=== PATIENT | female | born 1930 | race Caucasian/White ===

== ENCOUNTER 2017-07-08 08:55 | Outpatient (CLI) | payer MEDICARE, BC ==
--- NOTE | 2017-07-08 09:44 | CT ---
CT BRAIN NONCONTRAST: HISTORY: Follow up abnormal brain CT in 87-year-old female. The order states cerebrovascular accident I63.9 Comparison: 06-05-17 FINDINGS: There is no midline shift or any other mass effect. There is no evidence of acute intracranial hemo rrhage, large cortical infarct, obstructive hydrocephalus, or extraaxial fluid collection. The calv arium is intact. The tiny, approximately 0.5 cm intraaxial hyperdensity slightly to the right of mid line at the posterior edge of the velia and right tectum, abutting the ventral aspect of the fourth v entricle, is no longer definitely identified. In its place, there is a punctate 1-2 mm hyperdensity in the same location which could represent artifact or a tiny residual calcification. IMPRESSION: 1. No acute intracranial findings. 2. The previously demonstrated tiny hyperdense lesion at the posterior aspect of the upper brai nstem has either resolved or become much smaller. Recommend MRI of the brain with and without contra st for further evaluation, including gradient echo sequence. franky Duran POS: OFF
== END 2017-07-08 08:56 | disposition home or self-care (01) ==
LOC: TBSIIMAG 08:55
PROVIDERS: ATTEND Neurological Surgery
DX: I63.9 Cerebral infarction, unspecified (principal)
CPT/HCPCS: 70450

== ENCOUNTER 2017-09-08 08:00 | Outpatient (CLI) | payer MEDICARE, BC | END 2017-09-08 08:01 | disposition home or self-care (01) | LOC: BICMAMMO 08:00 | PROVIDERS: ATTEND Family Medicine | DX: Z12.31 Encounter for screening mammogram for malignant neoplasm of breast (principal); Z13.820 Encounter for screening for osteoporosis; M85.88 Other specified disorders of bone density and structure, other site; Z80.3 Family history of malignant neoplasm of breast; Z78.0 Asymptomatic menopausal state | CPT/HCPCS: 77063; 77080 ==

== ENCOUNTER 2017-10-05 02:23 | Outpatient (CLI) | payer MEDICARE, BC | END 2017-10-05 02:24 | disposition home or self-care (01) | LOC: BICRAD 02:23 | PROVIDERS: ATTEND Family Medicine | DX: R05 Cough (principal); I77.810 Thoracic aortic ectasia; I70.0 Atherosclerosis of aorta; Z98.890 Other specified postprocedural states | CPT/HCPCS: 71046 ==

== ENCOUNTER 2018-09-09 08:46 | Outpatient (CLI) | payer MEDICARE, BC | END 2018-09-09 08:47 | disposition home or self-care (01) | LOC: BICMAMMO 08:46 | PROVIDERS: ATTEND Obstetrics & Gynecology | DX: Z12.31 Encounter for screening mammogram for malignant neoplasm of breast (principal); Z80.3 Family history of malignant neoplasm of breast; Z85.89 Personal history of malignant neoplasm of other organs and systems | CPT/HCPCS: 77063; 77067 ==

== ENCOUNTER 2019-07-19 08:32 | Outpatient (CLI) | payer MEDICARE, BC ==
--- NOTE | 2019-07-19 10:36 | MMO ---
Bilateral MAMMO Bilat Diag [facility]RA[facility]. CLINICAL HISTORY: Patient is 89 years old and is seen for diagnostic exam. The patient has a history of right Excisional Biopsy in 1956 - BENIGN and right Excisional Biopsy in 1980 - BENIGN. VIEWS: The views performed were: bilateral craniocaudal with tomosynthesis; bilateral mediolateral oblique with tomosynthesis; bilateral mediolateral with tomosynthesis; and right exaggerated craniocaudal with tomosynthesis. FILMS COMPARED: The present examination has been compared to prior imaging studies performed at [facility] on 09/12/2015, 09/08/2017, 09/09/2018 and 07/19/2019. This study has been interpreted with the assistance of computer-aided detection. MAMMOGRAM FINDINGS: There are scattered fibroglandular densities. Finding 1: There are stable benign appearing calcifications seen in both breasts. Finding 2: There are no mammographic or sonographic abnormalities in the area of palpable concern on the right. The patient is referred back to her clinician. Negative imaging findings should not preclude biopsy if clinical findings are suspicious. IMPRESSION: FINDING 2: THERE ARE NO MAMMOGRAPHIC ABNORMALITIES IN THE AREA OF PALPABLE CONCERN ON THE RIGHT. THE PATIENT IS REFERRED BACK TO HER CLINICIAN. NEGATIVE IMAGING FINDINGS SHOULD NOT PRECLUDE BIOPSY IF CLINICAL FINDINGS ARE SUSPICIOUS. A ROUTINE FOLLOW-UP MAMMOGRAM IN 1 YEAR IS RECOMMENDED. THE RESULTS OF THIS EXAM WERE SENT TO THE PATIENT. ACR BI-RADS Category 2 - Benign finding MAMMOGRAPHY NOTE: 1. A negative mammogram report should not delay a biopsy if a dominant of clinically suspicious mass is present. 2. Approximately 10% to 15% of breast cancers are not detected by mammography. 3. Adenosis and dense breasts may obscure an underlying neoplasm. Reported by: CHRIS RUTHERFORD MD Electonically Signed: [id number]
--- NOTE | 2019-07-19 10:46 | BD ---
BONE DENSITOMETRY USING DEXA: HISTORY: Screening for postmenopausal osteoporosis. FINDINGS LUMBAR SPINE BMD (g/cm2) T-SCORE L1 0.756 -2.1 L2 0.860 -1.5 L3 0.744 -3.1 L4 0.844 -2.0 TOTAL 0.810 -2.2 BMD (g/cm2) T-SCORE NECK 0.631 -2.0 TOTAL 0.763 -1.5 IMPRESSION: Osteopenia. POS: JOSH
--- NOTE | 2019-07-19 11:49 | ULT ---
LIMITED RIGHT BREAST ULTRASOUND: 07/19/2019 PROVIDED CLINICAL HISTORY: Right breast palpable abnormality. FINDINGS: Limited sonographic interrogation of the right breast was performed in the region of palpable concern . An area of vague shadowing is demonstrated, corresponding with the patient's scar in this region. No corresponding mammographic abnormality is evident. No additional sonographic abnormality is evident. IMPRESSION: No concerning findings are apparent sonographically or mammographically in the region of palpable con cern. Negative imaging findings should not preclude further evaluation of a clinically suspicious area. The patient is referred back to her clinician. BIRADS 2 - Benign findings. POS: OFF
== END 2019-07-19 08:33 | disposition home or self-care (01) ==
LOC: BICMAMMO 08:32
PROVIDERS: ATTEND Obstetrics & Gynecology
DX: N63.21 Unspecified lump in the left breast, upper outer quadrant (principal); M81.0 Age-related osteoporosis without current pathological fracture; M85.89 Other specified disorders of bone density and structure, multiple sites; Z79.890 Hormone replacement therapy
CPT/HCPCS: 76642; 77066; 77080; G0279

== ENCOUNTER 2019-09-22 18:03 | Observation (INO) | payer MEDICARE, BC ==
[2019-09-22 20:03] LABS: #Eosinphils 0.2 thou/uL (0.0-0.7); #Lymphocytes 2.1 thou/uL (1.20-3.40); #Neutrophils 9.3 thou/uL (1.40-6.50); %Basophils 0.2 % (0.0-1.0); %Lymphocytes 16.4 % (21.0-51.0); %Monocytes 7.8 % (0.0-10.0); %Neutrophils 73.6 % (42.0-75.0); Hemoglobin 13.4 g/dL (12.0-16.0); Mean Corpuscular HGB CONC 33.7 g/dL (32.0-36.0); Mean Corpuscular Hemoglobin 31.2 pg (27.0-31.0); Mean Corpuscular Volume 92.7 fL (78.0-98.0); Mean Platelet Volume 8.7 fL (7.4-10.4); Platelet Count 201 thou/uL (130-400); RBC Distribution Width 11.8 % (11.5-14.5); Red Blood Cell (RBC) Count 4.29 mill/uL (4.20-5.40); White Blood Cell (WBC) Count 12.6 thou/uL (4.8-10.8)
[2019-09-22 20:14] LABS: ALT (SGPT) 15 U/L (8-55); AST (SGOT) 28 U/L (5-34); Albumin 3.9 g/dL (3.4-4.8); Alkaline Phosphatase 97 U/L (40-110); Anion Gap 11 mmol/L (10-20); BUN (Urea Nitrogen) 24 mg/dL (9.8-20.1); Calc. Creatinine Clearance 0 mL/min (70-130); Calcium 9.1 mg/dL (7.8-10.44); Carbon Dioxide 27 mmol/L (23-31); Chloride 100 mmol/L (98-107); Estimated GFR-MDRD 73; Globulin 2.6 g/dL (2.4-3.5); Glucose 106 mg/dL (83-110); Potassium 4.2 mmol/L (3.5-5.1); Protein, Total 6.5 g/dL (6.0-8.3); Sodium 134 mmol/L (136-145)
--- NOTE | 2019-09-22 20:20 | RAD ---
PORTABLE CHEST: 09/22/19 HISTORY: Dyspnea. COMPARISON: 06/05/17 study. Heart size is within normal limits. There are postop sternotomy change. Chronic lung changes are note d. The bones are demineralized. IMPRESSION: Chronic lung change. POS: JOSH
[2019-09-22 21:19] LABS: Bilirubin Negative (Negative); Blood, Urine 2+ (Negative); Clarity Clear (Clear); Glucose, Urine (Dipstick) Normal (Negative); Leukocyte Negative Leu/uL (Negative); Nitrite Negative (Negative); Protein, Urine (Dipstick) Negative (Neg-Trace); Squamous Epithelial 0-3 HPF (0-3); Urobilinogen Normal mg/dL (Less than 2); WBC/HPF 0-3 HPF (0-3)
[2019-09-22 21:25] LABS: Bacteria/HPF 1+ HPF (None Seen)
[2019-09-22] MEDS ORDERED: cefTRIAXone\\ROCEPHIN 1 GM VIAL ONE (22:02)
--- NOTE | 2019-09-22 22:25 | PDOC.FPRHP ---
- History of Present Illness Chief Complaint: Cough, SOB, Fever History of Present Illness: Susan Velazquez is an 89 y/o female with a PMH significant for CAD s/p CABG x3, COPD, HTN, HLD and a CVA in 2017 who presents to the ED for evaluation of a cough. Per the patient, she began coughing 36H prior while laying in bed, stating that she kept waking every 30M-60M while laying flat because she was coughing and out of breath. She admits to minimal clear sputum production, but denies continued SOB or a need to increase her home O2 requirements from her 2L via nasal cannula baseline. She also believes that her feet may have been slightly swollen from baseline. She also states that 24H prior to presentation she measured a fever of 103 F (Oral), and also had subjective chills earlier in the morning. She has been experiencing mild dysuria for some time, but denies continued ABD pain, hematuria, vaginal discharge, new-onset lesions or rashes. She states that she has been compliant with her home medication regimen and that she has not been exposed to any sick contacts. ED Course: While in the ED, a CXR was performed that revealed only chronic changes, likely 2/2 to COPD. s/p Tylenol and Ceftriaxone 1 g IV. - Allergies/Adverse Reactions Allergies Allergy/AdvReac Type Severity Reaction Status Date / Time codeine Allergy Mild Verified 04/25/13 14:59 Sulfa (Sulfonamide Allergy Mild Verified 04/25/13 14:59 Antibiotics) - Home Medications Medication Instructions Recorded Confirmed Type Atenolol 25 mg PO DAILY 04/25/13 09/23/19 History Rosuvastatin [Crestor] 20 mg PO DAILY 04/25/13 09/23/19 History Ubidecarenone [Coenzyme Q10] 200 mg PO DAILY 04/25/13 09/23/19 History Budesonide [Pulmicort Flexhaler] 1 puff INH BID 06/05/17 06/05/17 History Calcium Carbonate [Calcium] 1,000 mg PO DAILY 06/05/17 06/05/17 History Cholecalciferol (Vitamin D3) 5,000 unit PO DAILY 06/05/17 06/05/17 History [Vitamin D3] Furosemide 20 mg PO BID 06/05/17 09/23/19 History Multivit-Minerals/Folic/Ginkgo 1 tablet PO DAILY 06/05/17 09/23/19 History [One Daily For Women 50+ Adv] Multivitamin [Daily Multiple 1 each PO DAILY 06/05/17 09/23/19 History Vitamin] Tiotropium [place] [Spiriva 2 inh IH DAILY 06/05/17 06/05/17 History Respimat] Albuterol Sulfate [Albuterol 2.5 mg NEB Q6H PRN #30 vial 09/23/19 Rx Sulfate Neb] Doxycycline [Vibramycin] 100 mg PO BID 7 Days #14 cap 09/23/19 Rx Nebulizer Accessories [Aeroneb Go] 1 each MC ASDIR #1 each 09/23/19 Rx Nebulizer Accessories [Sootheneb 1 each MC DAILY #1 each 09/23/19 Rx Psc700 Adult Mask] Nebulizer [Aeroneb Go Nebulizer] 1 each MC ASDIR #1 each 09/23/19 Rx Nitrofurantoin Monohyd/M-Cryst 100 mg PO BID 4 Days #8 cap 09/23/19 Rx [Macrobid] predniSONE 40 mg PO QAM #5 tab 09/23/19 Rx - History PMHx: COPD, [place] (2005), CAD, HTN, HLD, CVA (2017) PSHx: CABG x3, Cholecsytectomy FHx:Sister ([place], HTN) Social: Remote tobacco abuse - 20 PY, denies EtOH and drug abuse. Code: Full - Review of Systems General: reports: fever/chills, fatigue Eyes: denies: vision changes ENT: denies: nasal congestion, rhinorrhea Respiratory: reports: cough, congestion, shortness of breath Cardiovascular: reports: edema, paroxysmal nocturnal dyspnea. denies: chest pain, palpitation Gastrointestinal: reports: constipation. denies: nausea, vomiting, diarrhea, abdominal pain, GI bleeding Genitourinary: reports: dysuria. denies: discharge Skin: denies: rashes, lesions Musculoskeletal: reports: pain, stiffness, arthritis/arthralgias Neurological: denies: syncope - Vital signs BP: [160/86] HR: [65] RR: [22] Tmax: [97.6] Pox: [99]% on [2L via Nasal Cannula ] Wt: [54 kg] - Physical Exam Constitutional: NAD, awake, alert and oriented, well developed HEENT: normocephalic and atraumatic, EOMI, conjunctiva clear, no scleral icterus , grossly normal vision, grossly normal hearing, normal nasal mucosa, MMM, oropharynx clear, other (Right pupil fixed and non-reactive - chronic) Neck: supple, FROM, trachea midline, no LAD, no JVD Chest: no-tender to palpation, no lesions Heart: RRR, normal S1/S2, no murmurs/rubs/gallops, pulses present, no edema Lungs: no respiratory distress, no rales/rhonchi, no retractions (Moderate air movement with mild wheezing heard diffusely) Abdomen: soft, non-tender, bowel sounds present, no masses/distention, no hernias Musculoskeletal: normal structure, ROM grossly normal Neurological: no focal deficit, normal sensation Skin: no rash/lesions, capillary refill <2 seconds, no jaundice Heme/Lymphatic: no unusual bruising or bleeding, no purpura, no petechia, no LAD Psychiatric: normal mood and affect, good judgment and insight, intact recent and remote memory FMR H&P: Results - Labs Result Diagrams: 09/23/19 01:30 09/22/19 19:44 Lab results: WBC 12.6 thou/uL (4.8-10.8) H 09/22/19 19:50 Hgb 13.4 g/dL (12.0-16.0) 09/22/19 19:50 Hct 39.8 % (36.0-47.0) 09/22/19 19:50 MCV 92.7 fL (78.0-98.0) 09/22/19 19:50 Plt Count 201 thou/uL (130-400) 09/22/19 19:50 Neutrophils % 73.6 % (42.0-75.0) 09/22/19 19:50 Sodium 134 mmol/L (136-145) L 09/22/19 19:44 Potassium 4.2 mmol/L (3.5-5.1) 09/22/19 19:44 Chloride 100 mmol/L (98-107) 09/22/19 19:44 Carbon Dioxide 27 mmol/L (23-31) 09/22/19 19:44 BUN 24 mg/dL (9.8-20.1) H 09/22/19 19:44 Creatinine 0.75 mg/dL (0.6-1.1) 09/22/19 19:44 Glucose 106 mg/dL (83-110) 09/22/19 19:44 Lactic Acid 0.7 mmol/L (0.5-2.2) 09/22/19 19:44 Calcium 9.1 mg/dL (7.8-10.44) 09/22/19 19:44 Total Bilirubin 1.0 mg/dL (0.2-1.2) 09/22/19 19:44 AST 28 U/L (5-34) 09/22/19 19:44 ALT 15 U/L (8-55) 09/22/19 19:44 Alkaline Phosphatase 97 U/L (40-110) 09/22/19 19:44 CK-MB (CK-2) 4.0 ng/mL (0-6.6) 09/22/19 19:34 Serum Total Protein 6.5 g/dL (6.0-8.3) 09/22/19 19:44 Albumin 3.9 g/dL (3.4-4.8) 09/22/19 19:44 Urine Ketones Negative mg/dL (Negative) 09/22/19 21:00 Urine Blood 2+ (Negative) A 09/22/19 21:00 Urine Nitrite Negative (Negative) 09/22/19 21:00 Ur Leukocyte Esterase Negative Reginaldo/uL (Negative) 09/22/19 21:00 Urine RBC 7-10 HPF (0-3) A 09/22/19 21:00 Urine WBC 0-3 HPF (0-3) 09/22/19 21:00 Ur Squamous Epith Cells 0-3 HPF (0-3) 09/22/19 21:00 Urine Bacteria 1+ HPF (None Seen) A 09/22/19 21:00 FMR H&P: A/P - Problem List (1) COPD exacerbation Current Visit: Yes Status: Acute Code(s): J44.1 - CHRONIC OBSTRUCTIVE PULMONARY DISEASE W (ACUTE) EXACERBATION (2) Cystitis Current Visit: Yes Status: Acute Code(s): N30.90 - CYSTITIS, UNSPECIFIED WITHOUT HEMATURIA (3) CAD (coronary artery disease) Current Visit: Yes Status: Acute Code(s): I25.10 - ATHSCL HEART DISEASE OF [place] CORONARY ARTERY W/O ANG PCTRS (4) CVA (cerebral vascular accident) Current Visit: Yes Status: Acute Code(s): I63.9 - CEREBRAL INFARCTION, UNSPECIFIED (5) Hyperlipidemia Current Visit: No Status: Acute Code(s): E78.5 - HYPERLIPIDEMIA, UNSPECIFIED Qualifiers: Hyperlipidemia type: unspecified Qualified Code(s): E78.5 - Hyperlipidemia , unspecified (6) Hypertension Current Visit: No Status: Acute Code(s): I10 - ESSENTIAL (PRIMARY) HYPERTENSION Qualifiers: Hypertension type: essential hypertension Qualified Code(s): I10 - Essential (primary) hypertension - Plan Patient is an 89 y/o female admitted to the Telemetry Floor for cough , SOB and fever. 1. COPD Exacerbation -HPI and ROS suspicious for COPD Exacerbation vs/ Viral URI vs. CHF Exacerbation -Extensive remote history of tobacco abuse requiring ongoing medical management at present -Physical exam remarkable only for mild wheezing - no acute respiratory distress -Influenza: Negative -RVP: Pending -CXR: Hyperinflated lungs w/o evidence of infiltrates -Blood Culture: Pending -DuoNeb 3ml Q6H PRN -Prednisone 40 mg PO daily -Doxycycline 100 mg PO BID -Currently on O2 2L via nasal cannula - continue to monitor respiratory status 2. Cystitis -Complains of sub-acute dysuria w/o adequate antibiotic treatment -Patient admits to 2-4 episodes of cystitis per year - never required hospitalization or progressed to pyelonephritis -WBC: 12.6 -UA: +Blood, +Bacteria -UCx: Pending -No CVA tenderness, new-onset vaginal lesions or foul smelling odor -s/p Ceftriaxone in ED - will transition to Macrobid 100 mg PO BID 3. CAD -Continue home medication regimen 4. HTN -BP: 160/86 on 09/22/19 -Continue home medication regimen -Hydralazine 10 mg IV PRN if SBP > 180 mmHg 5. Hyperlipidemia -Patient already taking high intensity statin - continue home medication regimen PCP: Gaytan Code: Full Diet: CC Activity: Ad michelle VTE PPx: Lovenox & SCDs Dispo: Patient is currently admitted to the Telemetry Floor for COPD Exacerbation complicated by probable cystitis. Continue empiric treatment for COPD Exacerbation to include FMR H&P: Upper Level - Pertinent history 89 y/o F PMHx COPD, CHF, Hemorrhagic stroke, CAD s/p 3v CABG, HTN, HLD presents to the ER complaining of SOB. She reports that overnight she started waking up a lot from sleep gasping for breath with tightness in her chest. She has been having more cough and SOB at baseline. She reports some mild swelling in her legs, but that it hasn't gotten much worse. She reports orthopnea and sleeps on 2 pillows at baseline, but this has not changed. She reports a fever today that went away on it's own, but has not recurred. She also reports a couple of days of dysuria that feels similar to prior UTI's. - Pertinent findings Vitals: BP: 160/86, Pulse: 65, Resp: 19, Pain: 0, O2 sat: 98 on (2L Oxygen) PE: Gen - alert, oriented, NAD on 2L O2 CV - RRR, no murmurs Lungs - scattered inspiratory and expiratory wheezes Ext - Trace edema - Plan Date/Time: 09/22/192218 I, Doreen Gonzalez MD, PGY-3, have evaluated this patient and agree with findings/ plan as outlined by kinesiology internship resident. Pertinent changes/additions are listed here. 1. COPD Exacerbation Pt with wheezes on exam and increased cough and chest tightness. -Will obs on tele -Prednisone, doxy, duonebs -Monitor respiratory status -Viral respiratory panel 2. CHF Does not appear in an exacerbation at this time, but will rule out with a BNP. Pt last echo in our system was in 2017 with EF 60-65%. She sees Dr. Sanchez. -Check BNP -Strict I/O's -Daily weights -Check echo if BNP elevated 3. Acute Cystitis UA with bacteria -Will check UCx -Macrobid 4. CAD s/p CABG -Continue home meds 5. HTN BP elevated at this time -Continue home meds -Hydralazine prn 6. HLD -Continue home meds Dispo: Obs on tele LOS: Likely less than 48 hours Addendum - Attending - Attending Attestation Date/Time: 09/22/192235 I personally evaluated the patient and discussed the management with Dr. Orona. I agree with the History, Examination, Assessment and Plan documented above with any addition or exceptions noted below. The patient presents with shortness of breath, cough and fever. She also noted mild dysuria. She states her o2 sats had been low at home. She has home O2 but only wears it prn. Pt has been having more wheezing. Expiratory wheezing noted on exam. Will start doxycycline and prednisone as well as nebs from copd exacerbation. Pt with mildly elevated bnp and she endorsed needing more pillows at night. Will get echo to further evaluate.
[2019-09-22 23:03] LABS: Troponin I 0.032 ng/mL (< 0.028)
[2019-09-22] MEDS ORDERED: Aspirin Chewable 81 MG TAB ONE (23:09)
[2019-09-22 23:46] VITALS: BMI 21.6
[2019-09-22] MEDS ORDERED: Ondansetron PF 4 MG/2 ML Vial IVP PRN (23:48)
[2019-09-22] MEDS ORDERED: Acetaminophen 325 MG TAB PO PRN (23:48)
[2019-09-22] MEDS ORDERED: Ondansetron ODT 4 MG TAB SL PRN (23:48)
[2019-09-23] MEDS ORDERED: Senokot S 8.6-50 MG TAB PO PRN (00:10)
[2019-09-23] MEDS ORDERED: predniSONE 20 MG TAB PO SCH ×4 (01:00→21:00)
[2019-09-23 01:38] LABS: Hemoglobin 12.2 g/dL (12.0-16.0); Mean Corpuscular HGB CONC 32.5 g/dL (32.0-36.0); Mean Corpuscular Hemoglobin 29.9 pg (27.0-31.0); Mean Corpuscular Volume 91.8 fL (78.0-98.0); Mean Platelet Volume 8.4 fL (7.4-10.4); Platelet Count 190 thou/uL (130-400); RBC Distribution Width 11.7 % (11.5-14.5); White Blood Cell (WBC) Count 8.9 thou/uL (4.8-10.8)
[2019-09-23 01:57] LABS: Eosinophils 5 % (0-10); Lymphocytes 29 % (21-51); MDiff Complete? YES; Monocytes 5 % (0-10); Neutrophil 59 % (42-75); Reactive Lymphocytes 2 % (0-10)
[2019-09-23 02:03] VITALS: TEMP 97.5
[2019-09-23 02:14] LABS: Troponin I Less than 0.010 ng/mL (< 0.028)
[2019-09-23] MEDS ORDERED: hydrALAZINE 20 MG/ML VIAL SLOW IVP PRN (02:38)
--- NOTE | 2019-09-23 05:31 | PDOC.FM ---
- Subjective Subjective: Patient sitting up in bed resting comfortably this morning, son also at bedside. Has no complaints this morning. Says she slept well, she did not require any oxygen use overnight. Denies any chest pain, back pain, SOB, headaches, dizziness. Son says she did complain of some dysuria yesterday. - Objective Vital Signs & Weight: Vital Signs (12 hours) Temp Pulse Resp BP Pulse Ox 09/23/19 02:02 97.5 F L 77 22 H 171/74 H 94 L 09/23/19 00:58 84 12 91 L 09/22/19 23:28 97.8 F 86 16 181/81 H 92 L Weight Weight 53.615 kg Result Diagrams: 09/23/19 01:30 09/22/19 19:44 Phys Exam - Physical Examination Constitutional: NAD HEENT: moist MMs, sclera anicteric Neck: no JVD, supple, full ROM Respiratory: no rales, no rhonchi Soft expiratory wheezes scattered. Cardiovascular: RRR, no significant murmur Gastrointestinal: soft, non-tender, no distention, positive bowel sounds Musculoskeletal: no edema, pulses present Neurological: normal sensation, moves all 4 limbs Psychiatric: normal affect Skin: no rash, normal turgor Dx/Plan (1) COPD (chronic obstructive pulmonary disease) Status: Acute Qualifiers: COPD type: unspecified COPD Qualified Code(s): J44.9 - Chronic obstructive pulmonary disease, unspecified (2) History of SC (myocardial infarction) Code(s): I25.2 - OLD MYOCARDIAL INFARCTION Status: Acute (3) Hyperlipidemia Code(s): E78.5 - HYPERLIPIDEMIA, UNSPECIFIED Status: Acute Qualifiers: Hyperlipidemia type: unspecified Qualified Code(s): E78.5 - Hyperlipidemia , unspecified (4) Hypertension Code(s): I10 - ESSENTIAL (PRIMARY) HYPERTENSION Status: Acute Qualifiers: Hypertension type: essential hypertension Qualified Code(s): I10 - Essential (primary) hypertension (5) (HFpEF) heart failure with preserved ejection fraction Code(s): I50.30 - UNSPECIFIED DIASTOLIC (CONGESTIVE) HEART FAILURE Status: Acute Qualifiers: Heart failure chronicity: chronic Qualified Code(s): I50.32 - Chronic diastolic (congestive) heart failure (6) Acute cystitis Code(s): N30.00 - ACUTE CYSTITIS WITHOUT HEMATURIA Status: Acute - Plan Plan: Patient is an 89 yo female who presents with fever, cough, & SOB is admitted for COPD exacerbation & acute cystitis: #COPD Exacerbation Pt with wheezes on exam and increased cough and chest tightness. -Prednisone 40 qAM -Doxycycline (09/23) -Duonebs -Monitor respiratory status -Viral respiratory panel pending #CHF Does not appear in an exacerbation at this time, but will rule out with a BNP. Pt last echo in our system was in 2016 with EF 60-65%. She sees Dr. Sanchez. -Check BNP -Strict I/O's -Daily weights -ECHO ordered #Acute Cystitis UA with 1+ bacteria, 2+ blood & fever -Given Rocephin x 1 in ED (09/22) -Will check Urine Culture, Blood culture -Macrobid (09/23) #CAD s/p CABG -Continue home meds #HTN BP elevated at this time -Continue home meds -Hydralazine prn -vitals q4h #HLD -Continue home meds Diet: Heart Healthy VTE: SCDs, Lovenox Code status: FULL Dispo: Stable, admitted to Obs on telemetry unit. Continue Antibiotics as above. Monitor respiratory status. Anticipate discharge in <48 hours Addendum - Attending - Attending Attestation Date/Time: 09/23/19 1019 I personally evaluated the patient and discussed the management with Dr. Merrill. I agree with the History, Examination, Assessment and Plan documented above with any addition or exceptions noted below. Echo has not been taken. The patient and her son both state she did much better after neb treatment. She is not requiring oxygen. If pt remains stable , may be able to d/c this afternoon. Urine cx pending.
[2019-09-23] MEDS ORDERED: Calcium Carbonate + Vit D 250 MG TAB PO SCH ×2 (06:00→09:00)
[2019-09-23] MEDS ORDERED: Furosemide 20 MG TAB PO SCH (09:00)
[2019-09-23] MEDS ORDERED: Nitrofurantoin Monohyd/M-Cryst 100 MG CAP PO SCH (09:00)
[2019-09-23] MEDS ORDERED: Doxycycline 100 MG CAP PO SCH (09:00)
[2019-09-23] MEDS ORDERED: Multivitamins CHEW w/Iron Tablet PO SCH (09:00)
[2019-09-23] MEDS ORDERED: Enoxaparin Sodium 40 MG/0.4 ML SYRINGE SC SCH (09:00)
[2019-09-23] MEDS ORDERED: Atenolol 25 MG TAB PO SCH (09:00)
[2019-09-23] MEDS ORDERED: Ubidecarenone 50 MG CAP PO SCH (09:00)
[2019-09-23] MEDS ORDERED: Famotidine 20 MG TAB PO SCH (09:00)
[2019-09-23 12:18] VITALS: BP 127/60
--- NOTE | 2019-09-23 20:39 | DIS ---
DATE OF ADMISSION: 09/22/2019 DATE OF DISCHARGE: 09/23/2019 RESIDENT: Brenda Merrill DO ADMITTING ATTENDING: Shanti Farmer MD DISCHARGE ATTENDING: Shanti Farmer MD CONSULTS: None. PROCEDURES PERFORMED: 1. Chest x-ray on September 22, 2019: Chronic lung change. 2. Echocardiogram on September 23, 2019: Results pending. PRIMARY DIAGNOSIS: Chronic obstructive pulmonary disease exacerbation. SECONDARY DIAGNOSES: 1. Heart failure with preserved ejection fraction, chronic. 2. Acute cystitis. 3. Coronary artery disease status post coronary artery bypass graft. 4. Hypertension. 5. Hyperlipidemia. DISCHARGE MEDICATIONS: 1. Albuterol sulfate 2.5 mg nebulizer q.6 hours p.r.n. 2. Doxycycline 100 mg p.o. b.i.d. for 7 days. 3. Macrobid (nitrofurantoin) 100 mg p.o. b.i.d. for 4 more days. 4. Prednisone 40 mg p.o. q.a.m. for 5 more days. 5. CoQ10 200 mg p.o. daily. 6. Rosuvastatin 20 mg p.o. daily. 7. Atenolol 25 mg p.o. daily. 8. Spiriva 2 puffs inhaled daily. 9. Pulmicort inhaler one puff inhaled b.i.d. 10. Vitamin D3 5000 units p.o. daily. 11. Calcium carbonate 1000 mg p.o. daily. 12. Multivitamin 1 tablet p.o. daily. 13. Furosemide 20 mg p.o. b.i.d. DISCONTINUED MEDICATIONS: None. HISTORY OF PRESENT ILLNESS/HOSPITAL COURSE: The patient is an 89-year-old female, who presented to the [facility] Emergency Department on September 22, 2019 for evaluation of a cough. Per the patient, she began coughing approximately 36 hours prior while lying in bed, stating that she kept waking every 30-60 minutes while lying flat because she was coughing and out of breath. She admitted to minimal clear sputum production, but denied continued shortness of breath or need to increase her home O2 requirements from her 2 L via nasal cannula at baseline. She also believes that her feet may have been slightly swollen from baseline. She also stated that 24 hours prior to presentation, she measured a fever of 103 Fahrenheit (oral), and also had subjective chills earlier in the morning. She has been experiencing mild dysuria for some time, but denies continued abdominal pain, hematuria, vaginal discharge, new onset lesions or rashes. She states that she has been compliant with her home medication regimen and has not been exposed to any sick contacts. While in the emergency department, a chest x-ray was performed that revealed only chronic changes likely secondary to COPD. She was also given Tylenol and 1 g of Rocephin IV. The patient was admitted to observation on the telemetry floor for a COPD exacerbation and acute cystitis. Her antibiotics were transitioned to Macrobid 100 mg p.o. b.i.d. Her physical exam was remarkable only for mild wheezing with no acute respiratory distress, which was thought to be more likely a COPD exacerbation and much less likely a CHF exacerbation as the patient did not show any other signs of fluid overload. Due to the suspicion for COPD exacerbation, the patient was started on doxycycline. Blood and urine cultures were obtained, which have show no growth at 24 hours and final results are still pending. The patient also had a negative respiratory viral panel. Her UA showed 2+ blood and 1+ bacteria. The patient did well throughout the night and on the morning of September 23, 2019, did not have any complaints. She did not require any further use of oxygen with saturations remaining in the low to mid 90s on room air. It is anticipated that this is her baseline. The patient had an echocardiogram performed in the early afternoon of September 23, 2019. After this, the patient was deemed stable for discharge back home. Discharge instructions were provided to both the patient and her son. The patient will be called with results of pending lab work and echo. DISPOSITION: Stable. DISCHARGE INSTRUCTIONS: 1. Location: Home. 2. Diet: Heart healthy. 3. Activity: As tolerated. 4. Followup: Follow up with Dr. Gaytan at [facility] in 3 to 5 days. Job ID: [id number] [facility]
[2019-09-23] MEDS ORDERED: Rosuvastatin 20 MG TAB PO SCH (21:00)
--- NOTE | 2019-09-26 14:33 | EKG ---
Test Reason : Blood Pressure : / mmHG Vent. Rate : 081 BPM Atrial Rate : 091 BPM P-R Int : 158 ms QRS Dur : 078 ms QT Int : 406 ms P-R-T Axes : 094 065 086 degrees QTc Int : 471 ms Sinus rhythm with marked sinus arrhythmia Nonspecific T wave abnormality Abnormal ECG Confirmed by OTTO JACOBSEN DO ([id number]), editor managing director LISANDRO DURAN ([id number]) on 09/26/2019 2:33:08 PM Referred By: Confirmed By:OTTO JACOBSEN DO
== END 2019-09-23 13:43 | disposition home or self-care (01) ==
LOC: ERS 18:03 → 2SW 22:12
PROVIDERS: ADMIT Family Medicine; ATTEND Family Medicine
DX: J44.1 Chronic obstructive pulmonary disease with (acute) exacerbation (principal); I11.0 Hypertensive heart disease with heart failure; I50.32 Chronic diastolic (congestive) heart failure; N30.00 Acute cystitis without hematuria; I25.10 Atherosclerotic heart disease of native coronary artery without angina pectoris; E78.5 Hyperlipidemia, unspecified; I25.2 Old myocardial infarction; Z86.73 Personal history of transient ischemic attack (TIA), and cerebral infarction without residual deficits; Z87.891 Personal history of nicotine dependence; Z79.899 Other long term (current) drug therapy; Z88.2 Allergy status to sulfonamides; Z88.5 Allergy status to narcotic agent; Z95.1 Presence of aortocoronary bypass graft
CPT/HCPCS: 71045; 80053; 82553; 83605; 83880; 84145; 84484 ×3; 85007; 85025; 85027; 87040; 87086; 87633; 87804 ×2; 93005; 93306; 94640 ×2; 96365; 96372; 99285; G0378 ×2; 36415; 81003; 81015; J0696; J1650; J7512; J7620

== ENCOUNTER 2019-09-29 17:39 | Observation (INO) | payer MEDICARE, BC ==
[2019-09-29 18:16] LABS: #Eosinphils 0.1 thou/uL (0.0-0.7); #Lymphocytes 1.8 thou/uL (1.20-3.40); #Monocytes 1.6 thou/uL (0.11-0.59); %Basophils 0.1 % (0.0-1.0); %Eosinophils 0.3 % (0.0-10.0); %Lymphocytes 9.9 % (21.0-51.0); %Monocytes 8.7 % (0.0-10.0); Hemoglobin 14.7 g/dL (12.0-16.0); Mean Corpuscular HGB CONC 31.9 g/dL (32.0-36.0); Mean Corpuscular Hemoglobin 29.5 pg (27.0-31.0); Mean Corpuscular Volume 92.6 fL (78.0-98.0); Mean Platelet Volume 8.1 fL (7.4-10.4); Platelet Count 319 thou/uL (130-400); RBC Distribution Width 11.9 % (11.5-14.5); Red Blood Cell (RBC) Count 4.98 mill/uL (4.20-5.40); White Blood Cell (WBC) Count 18.5 thou/uL (4.8-10.8)
[2019-09-29 18:37] LABS: ALT (SGPT) 27 U/L (8-55); AST (SGOT) 29 U/L (5-34); Alkaline Phosphatase 111 U/L (40-110); Anion Gap 15 mmol/L (10-20); BUN (Urea Nitrogen) 17 mg/dL (9.8-20.1); Calc. Creatinine Clearance 0 mL/min (70-130); Calcium 9.3 mg/dL (7.8-10.44); Carbon Dioxide 25 mmol/L (23-31); Chloride 102 mmol/L (98-107); Estimated GFR-MDRD 52; Globulin 2.7 g/dL (2.4-3.5); Glucose 121 mg/dL (83-110); Potassium 4.8 mmol/L (3.5-5.1); Protein, Total 6.7 g/dL (6.0-8.3); Sodium 137 mmol/L (136-145)
[2019-09-29] MEDS ORDERED: Loperamide HCl 2 MG CAP ONE (23:46)
--- NOTE | 2019-09-29 23:58 | CT ---
CT abdomen and pelvis: 09/29/2019 COMPARISON: None HISTORY: Diarrhea TECHNIQUE: Axial CT imaging at 5 mm intervals from lung bases through pubic symphysis with IV contras t. Coronal and sagittal reformatted imaging obtained. FINDINGS: Emphysematous changes are noted within the lung bases. The lack of oral contrast limits ass essment of the bowel. There are cholecystectomy clips present. The liver, spleen, pancreas, adrenal glands, and kidneys demonstrate no acute findings. There is small volume free fluid in the pelvis. No free intraperitoneal air is appreciated. There is diffuse abnormal colonic wall thickening involving the descending colon through the sigmoid: . No evidence for small bowel obstruction. There is extensive atherosclerotic calcification of the abdominal aorta and its branches. No abscess. No retroperitoneal lymphadenopathy. The osseous structures demonstrate diffuse osteopenia and severe multilevel spinal degenerative qulies e. There is lumbar spine dextroscoliosis. IMPRESSION: Prominent nonspecific wall thickening of the descending colon and sigmoid colon, evidence of nonspecific colitis which may be inflammatory/infectious or ischemic in nature. There is extensive atherosclerotic disease involving the abdominal aorta and its branches. No free intraperito mirlande air or evidence of small bowel obstruction.
[2019-09-30] MEDS ORDERED: metroNIDAZOLE 500 MG/100 ML BAG ONE (00:31)
--- NOTE | 2019-09-30 01:56 | PDOC.FPRHP ---
- History of Present Illness Chief Complaint: diarrhea History of Present Illness: Susan Velazquez is an 89 year old F with a PMH of CHF (Echo 2019 EF 65-70%, Severe TR, Mod MR), COPD, CAD s/p CA and 3V CABG, HTN, HLD who presented to the ED with a 3-4 day history of diarrhea. Associated crampy abdominal pain diffusely. Pt recently admitted to [facility] on 09/22/19 for COPD exacerbation and was discharged 09/23/19 which prednisone and doxycycline. During that admission, was also noted to have UTI and was treated with macrobid. She denies any GI bleeding, BRBPR or tarry stools. Diarrhea described as watery. Denies fever, chills, chest pain, dyspnea, dysuria, frequency, rashes. On first day of symptoms, she also had n/v but that has since resolved. She had had decreased PO intake over the last few days due to symptoms. Of note, pt lives with granddaughter, who was recently diagnosed with influenza B. In the ED, CT abd was done showing prominent nonspecific wall thickening of descending and sigmoid colon. No free air. ERMD started patient on Flagyl and Cipro in ED and she was given 2 L NS and started on maintenance fluids. Stool studies were ordered but patient had formed stool in the ED so they were not done. - Allergies/Adverse Reactions Allergies Allergy/AdvReac Type Severity Reaction Status Date / Time codeine Allergy Mild Verified 04/25/13 14:59 Sulfa (Sulfonamide Allergy Mild Verified 04/25/13 14:59 Antibiotics) - Home Medications Medication Instructions Recorded Confirmed Type Atenolol 25 mg PO DAILY 04/25/13 09/30/19 History Rosuvastatin [Crestor] 20 mg PO DAILY 04/25/13 09/30/19 History Ubidecarenone [Coenzyme Q10] 200 mg PO DAILY 04/25/13 09/30/19 History Budesonide [Pulmicort Flexhaler] 1 puff INH BID 06/05/17 09/30/19 History Calcium Carbonate [Calcium] 1,000 mg PO DAILY 06/05/17 09/30/19 History Cholecalciferol (Vitamin D3) 5,000 unit PO DAILY 06/05/17 09/30/19 History [Vitamin D3] Furosemide 20 mg PO BID 06/05/17 09/30/19 History Multivit-Minerals/Folic/Ginkgo 1 tablet PO DAILY 06/05/17 09/30/19 History [One Daily For Women 50+ Adv] Multivitamin [Daily Multiple 1 each PO DAILY 06/05/17 09/30/19 History Vitamin] Tiotropium Kopperl [Spiriva 2 inh IH DAILY 06/05/17 09/30/19 History Respimat] Albuterol Sulfate [Albuterol 2.5 mg NEB Q6H PRN #30 vial 09/23/19 09/30/19 Rx Sulfate Neb] Nebulizer Accessories [Aeroneb Go] 1 each MC ASDIR #1 each 09/23/19 09/30/19 Rx Nebulizer Accessories [Sootheneb 1 each MC DAILY #1 each 09/23/19 09/30/19 Rx [id number] Adult Mask] Nebulizer [Aeroneb Go Nebulizer] 1 each MC ASDIR #1 each 09/23/19 09/30/19 Rx - History PMHx: CHF, COPD, CAD, HTN, HLD PSHx: CABG 3 V, appendectomy, cholecystectomy FHx: noncontributory Social: long smoking hx >50 years, quit >10 years ago, denies alcohol or drugs - Review of Systems General: reports: weight/appetite/sleep changes. denies: fever/chills, night sweats Eyes: denies: eye pain, vision changes ENT: denies: nasal congestion, rhinorrhea Respiratory: denies: cough, congestion, shortness of breath Cardiovascular: denies: chest pain, palpitation, edema Gastrointestinal: reports: nausea, vomiting, diarrhea, abdominal pain Genitourinary: reports: incontinence (chronic). denies: dysuria, polyuria Skin: denies: rashes, lesions Musculoskeletal: denies: pain, tenderness Neurological: denies: numbness, syncope Psychological: denies: anxiety, depression - Vital signs BP: 105/50 HR: 69 RR: 18 Tmax: 99.5 Pox: 94% on RA Wt: 53 kg - Physical Exam Constitutional: NAD, awake, alert and oriented HEENT: normocephalic and atraumatic, PERRLA, EOMI, conjunctiva clear, grossly normal hearing, normal nasal mucosa, MMM, oropharynx clear Neck: supple, FROM, trachea midline, no JVD Chest: no-tender to palpation, no lesions Heart: RRR, normal S1/S2, no murmurs/rubs/gallops Lungs: CTAB, no respiratory distress, good air movement, no rales/rhonchi, no wheezing Abdomen: soft, bowel sounds present, no masses/distention -Abdomen: mild abdominal ttp diffusely, worse in LLQ Musculoskeletal: normal structure, normal tone Neurological: no focal deficit, CN II-XII intact Skin: no rash/lesions, good turgor, capillary refill <2 seconds Heme/Lymphatic: no unusual bruising or bleeding, no purpura, no petechia Psychiatric: normal mood and affect, good judgment and insight, intact recent and remote memory FMR H&P: Results - Labs Result Diagrams: 09/29/19 18:05 09/29/19 18:05 Lab results: WBC 18.5 thou/uL (4.8-10.8) H 09/29/19 18:05 Hgb 14.7 g/dL (12.0-16.0) 09/29/19 18:05 Hct 46.1 % (36.0-47.0) 09/29/19 18:05 MCV 92.6 fL (78.0-98.0) 09/29/19 18:05 Plt Count 319 thou/uL (130-400) 09/29/19 18:05 Neutrophils % 81.0 % (42.0-75.0) H 09/29/19 18:05 Sodium 137 mmol/L (136-145) 09/29/19 18:05 Potassium 4.8 mmol/L (3.5-5.1) 09/29/19 18:05 Chloride 102 mmol/L (98-107) 09/29/19 18:05 Carbon Dioxide 25 mmol/L (23-31) 09/29/19 18:05 BUN 17 mg/dL (9.8-20.1) 09/29/19 18:05 Creatinine 1.00 mg/dL (0.6-1.1) 09/29/19 18:05 Glucose 121 mg/dL (83-110) H 09/29/19 18:05 Calcium 9.3 mg/dL (7.8-10.44) 09/29/19 18:05 Total Bilirubin 1.0 mg/dL (0.2-1.2) 09/29/19 18:05 AST 29 U/L (5-34) 09/29/19 18:05 ALT 27 U/L (8-55) 09/29/19 18:05 Alkaline Phosphatase 111 U/L (40-110) H 09/29/19 18:05 Serum Total Protein 6.7 g/dL (6.0-8.3) 09/29/19 18:05 Albumin 4.0 g/dL (3.4-4.8) 09/29/19 18:05 - Radiology Interpretation CT scan - abdomen Status: report reviewed by me (Prominent nonspecific wall thickening of descending and sigmoid colon) FMR H&P: A/P - Problem List (1) Dehydration Current Visit: Yes Status: Acute Code(s): E86.0 - DEHYDRATION (2) Colitis Current Visit: Yes Status: Acute Code(s): K52.9 - NONINFECTIVE GASTROENTERITIS AND COLITIS, UNSPECIFIED (3) (HFpEF) heart failure with preserved ejection fraction Current Visit: No Status: Chronic Code(s): I50.30 - UNSPECIFIED DIASTOLIC ( CONGESTIVE) HEART FAILURE Qualifiers: Heart failure chronicity: chronic Qualified Code(s): I50.32 - Chronic diastolic (congestive) heart failure (4) CAD (coronary artery disease) Current Visit: No Status: Chronic Code(s): I25.10 - ATHSCL HEART DISEASE OF [place] CORONARY ARTERY W/O ANG PCTRS (5) COPD (chronic obstructive pulmonary disease) Current Visit: No Status: Chronic Qualifiers: COPD type: unspecified COPD Qualified Code(s): J44.9 - Chronic obstructive pulmonary disease, unspecified (6) History of CA (myocardial infarction) Current Visit: No Status: Chronic Code(s): I25.2 - OLD MYOCARDIAL INFARCTION (7) Hyperlipidemia Current Visit: No Status: Chronic Code(s): E78.5 - HYPERLIPIDEMIA, UNSPECIFIED Qualifiers: Hyperlipidemia type: unspecified Qualified Code(s): E78.5 - Hyperlipidemia , unspecified (8) Hypertension Current Visit: No Status: Chronic Code(s): I10 - ESSENTIAL (PRIMARY) HYPERTENSION Qualifiers: Hypertension type: essential hypertension Qualified Code(s): I10 - Essential (primary) hypertension - Plan 1) Dehydration: - Obs, Medical - s/p 2 L NS in ED, continue maintenance IVFs - likely 2/2 acute colitis - routine I/Os 2) Acute Colitis - c diff on ddx but less likely due to formed stool in ED - will get stool studies with watery diarrhea persists - started on flagyl and cipro in ED - will likely narrow abx regimen - anticipate d/c later today if symptoms remain controlled - no GI bleeding 3) CAD - continue home meds 4) COPD - recent hospitalization for exacerbation - completed treatment regimen - asymptomatic, continue home meds 5) HTN - monitor, home meds CODE STATUS: FULL CODE VTE PPx: Lovenox Dispo: Anticipate hospital stay <48 hrs and d/c home
[2019-09-30] MEDS ORDERED: Lactated Ringer's 1,000 ML IV SCH (02:22)
[2019-09-30 03:01] VITALS: BMI 20.9
[2019-09-30] MEDS ORDERED: metroNIDAZOLE 500 MG in Premix Bag 1 BAG IVPB SCH (08:00)
[2019-09-30 08:12] VITALS: TEMP 98.2
[2019-09-30 08:16] LABS: Anion Gap 11 mmol/L (10-20); BUN (Urea Nitrogen) 14 mg/dL (9.8-20.1); Calc. Creatinine Clearance 46 mL/min (70-130); Carbon Dioxide 25 mmol/L (23-31); Chloride 108 mmol/L (98-107); Estimated GFR-MDRD 76; Glucose 82 mg/dL (83-110); Potassium 4.2 mmol/L (3.5-5.1); Sodium 140 mmol/L (136-145)
[2019-09-30 08:19] LABS: #Eosinphils 0.3 thou/uL (0.0-0.7); #Lymphocytes 2.3 thou/uL (1.20-3.40); #Monocytes 0.8 thou/uL (0.11-0.59); #Neutrophils 3.8 thou/uL (1.40-6.50); %Basophils 0.4 % (0.0-1.0); %Eosinophils 3.7 % (0.0-10.0); %Monocytes 11.1 % (0.0-10.0); %Neutrophils 52.8 % (42.0-75.0); Hemoglobin 11.6 g/dL (12.0-16.0); Mean Corpuscular HGB CONC 32.7 g/dL (32.0-36.0); Mean Corpuscular Hemoglobin 30.4 pg (27.0-31.0); Mean Corpuscular Volume 92.9 fL (78.0-98.0); Mean Platelet Volume 8.4 fL (7.4-10.4); Platelet Count 252 thou/uL (130-400); RBC Distribution Width 11.8 % (11.5-14.5); Red Blood Cell (RBC) Count 3.81 mill/uL (4.20-5.40); White Blood Cell (WBC) Count 7.1 thou/uL (4.8-10.8)
[2019-09-30] MEDS ORDERED: Enoxaparin Sodium 40 MG/0.4 ML SYRINGE SC SCH (09:00)
[2019-09-30 12:22] VITALS: BP 94/59
--- NOTE | 2019-10-05 12:11 | DIS ---
DATE OF ADMISSION: 09/30/2019 DATE OF DISCHARGE: 09/30/2019 ADMITTING ATTENDING: Audie Gaytan MD DISCHARGE ATTENDING: Audie Gaytan MD RESIDENT: Larry Dubois DO CONSULTS: None. PROCEDURES: CT abdomen and pelvis on 07/30 with a finding of prominent nonspecific wall thickening in the descending colon and sigmoid colon, evidence of nonspecific colitis. Extensive atherosclerotic disease involving abdominal aorta and its branches. ADMITTING DIAGNOSES: 1. Colitis. 2. Dehydration. DISCHARGE DIAGNOSES: 1. Dehydration, resolved. 2. Infectious gastroenteritis. 3. Coronary artery disease. 4. Chronic obstructive pulmonary disease. 5. Hypertension. DISCHARGE MEDICATIONS: 1. CoQ10 of 200 mg p.o. daily. 2. Crestor 20 mg p.o. daily. 3. Atenolol 25 mg p.o. daily. 4. Spiriva inhaler two inhalations daily. 5. Pulmicort 180 mcg inhaler one puff b.i.d. 6. Vitamin D3 of 5000 units daily. 7. Calcium carbonate 1000 mg p.o. daily. 8. Multivitamin. 9. Lasix 20 p.o. b.i.d. 10. Albuterol sulfate neb 2mg/5mL q.6 p.r.n. wheezing. 11. DuoNeb 0.5mg/2.5mg per 3mL neb q.i.d. 12. Ezetimibe one tab p.o. daily. 13. Aspirin 81 mg p.o. daily. HOSPITAL COURSE: Ms. Velazquez is an 89-year-old female, who presented to the emergency room for abdominal pain, cramping, and diarrhea for three days. Prior to onset of symptoms, she has been treated with Tamiflu for flu prophylaxis. About a day later, she began to have diarrhea. In the emergency room, CT showed nonspecific changes concerning for colitis. However, never during her time in the ER or observation period in the inpatient setting, did she have any loose stools. She did have two formed bowel movements. Over the course of the hospitalization, she received intravenous fluids and began to feel much better. She was tolerating p.o., again had no loose stools. Therefore, there was no further workup for infectious diarrhea/colitis. At the time of discharge, the patient requested to go home. She was tolerating p.o. She had no abdominal pain. She had no diarrhea. Vital signs were stable, and she appeared to be euvolemic. DISCHARGE INSTRUCTIONS: 1. Location: Home. 2. Diet: Heart healthy. 3. Followup: With PCP in one week. Job ID: [id number] MTDD
== END 2019-09-30 15:06 | disposition home or self-care (01) ==
LOC: ERS 17:39 → SURG A 09-30 02:22
PROVIDERS: ADMIT Family Medicine; ATTEND Family Medicine
DX: A09 Infectious gastroenteritis and colitis, unspecified (principal); E86.0 Dehydration; I11.0 Hypertensive heart disease with heart failure; I50.32 Chronic diastolic (congestive) heart failure; J44.9 Chronic obstructive pulmonary disease, unspecified; I25.10 Atherosclerotic heart disease of native coronary artery without angina pectoris; I25.2 Old myocardial infarction; E78.5 Hyperlipidemia, unspecified; I70.0 Atherosclerosis of aorta; Z87.891 Personal history of nicotine dependence; Z79.51 Long term (current) use of inhaled steroids; Z79.899 Other long term (current) drug therapy; Z88.2 Allergy status to sulfonamides; Z88.5 Allergy status to narcotic agent; Z95.1 Presence of aortocoronary bypass graft
CPT/HCPCS: 74177; 80048; 80053; 85025 ×2; 87804 ×2; 96361 ×2; 96365; 96366; 96367; 96372; 97139; 99285; G0378 ×2; 36415; J0744; J1650

== ENCOUNTER 2021-03-18 09:55 | Outpatient (CLI) | payer MEDICARE, BC | END 2021-03-18 09:56 | disposition home or self-care (01) | LOC: BICRAD 09:55 | PROVIDERS: ATTEND Internal Medicine Pulmonary Disease | DX: R06.00 Dyspnea, unspecified (principal) | CPT/HCPCS: 71046 ==